=== PATIENT | male | born 1955 | race Caucasian/White ===

== ENCOUNTER → 2019-11-01 08:26 | Outpatient (CLI) | payer OTHER, SELFPAY ==
--- NOTE | ~2019-11-01 | US_ITS ---
EXAMINATION: US abdomen complete DATE: 11/01/2019 09:05 INDICATION: Generalized abdominal pain TECHNIQUE: Multiple grayscale and Doppler ultrasound images of the abdomen were obtained. COMPARISON: None available FINDINGS: Bowel gas obscures visualization of the pancreas. The visualized portions of the pancreas a re unremarkable. Cysts of the liver measure up to 1.5 cm in the right hepatic lobe. The liver is othe rwise normal with normal echogenicity and echotexture. No surface nodularity. Normal hepatopetal flow in the main portal vein. The gallbladder is normal with no abnormal wall thickening, pericholecystic fluid or stones. The normal common bile duct measures 4 mm. There was no sonographic Hayden sign. Th e visualized portions of the aorta and inferior vena cava are normal. The right kidney measures 10.7 x 4.4 x 5.1 cm. The left kidney measures 11.7 x 6.1 x 6.4 cm and conta ins a 1.8 cm cyst. The kidneys demonstrate normal parenchymal echogenicity. There is no hydronephrosi s. The spleen is normal in appearance and measures 9.9 cm. IMPRESSION: 1. No sonographic correlate for the patient's symptoms. Reviewed, dictated and finalized at location A.
--- NOTE | ~2019-11-01 | XR_ITS ---
EXAMINATION: XR chest 2V DATE: 11/01/2019 09:04 INDICATION: Chest pain TECHNIQUE: Frontal and lateral views of the chest are obtained COMPARISON: 12/24/2016 FINDINGS: The lungs are free of acute opacities. There is no pleural effusion or pneumothorax. The ca rdiomediastinal silhouette is normal. There is moderate thoracic spondylosis. IMPRESSION: 1. No acute cardiopulmonary abnormality. Reviewed, dictated and finalized at location A.
== END ==
PROVIDERS: PCP Family Medicine; Visit Provider Family Medicine
DX: R07.9 Chest pain, unspecified (principal); R10.9 Unspecified abdominal pain
CPT/HCPCS: 71046; 76700

== ENCOUNTER 2020-03-26 15:29 | Emergency (ER) | payer OTHER, SELFPAY ==
--- NOTE | ~2020-03-26 | XR_ITS ---
XR chest 2V DATE: 03/26/2020 16:14 INDICATION: Mid upper posterior chest pain, back pain starting this morning. History of COPD. TECHNIQUE: AP and lateral views COMPARISON: 11/01/2019 2 view chest FINDINGS: Normal heart size. No hilar or mediastinal enlargement. No pulmonary infiltrate or consolid ation, pleural effusion or pulmonary vascular congestion or pneumothorax is detected.. Included skele sumeet structures are unremarkable. IMPRESSION: No active cardiopulmonary disease or significant change since 11/01/2019 Reviewed, dictated and finalized at location A. 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
--- NOTE | ~2020-03-26 | CT_ITS ---
EXAMINATION: CTA chest DATE: 03/26/2020 19:25 INDICATION: Chest and back pain TECHNIQUE: Computed tomography (CT) of the chest was performed with 100 cc Omnipaque 350 intravenous contrast. Automated exposure control and iterative reconstruction technique were employed. Exam dose: 853.38 mGy-cm total exam DLP. COMPARISON: 03/26/2020 2 view chest 10/07/2010 CT pulmonary scan FINDINGS: Mild to moderate emphysematous changes are present. Minimal dependent atelectasis at the posterior right lung base. The lungs otherwise are clear of infi ltrate or consolidation. No suspicious pulmonary mass lesion is evident. Normal size and homogeneous enhancement of the thyroid gland. No thoracic aortic aneurysm or dissection. No hilar or mediastinal mass lesion or lymphadenopathy. No CT evidence of pulmonary embolism. There is some attenuation of the right upper lobe pulmonary art [place], possibly secondary to a greater emphysematous change in this lobe. Normal heart size. No pericardial or pleural effusion. Small sliding hiatal hernia. Several probable hepatic cysts. Exophytic 2.1 cm lower pole left renal cyst. Prominent degenerative disc disease at C5-6 and C6-7. There is diffuse idiopathic skeletal hyperostos is of the thoracic spine. Degenerative changes are noted in the lumbar spine. No suspicious osteolytic or osteoblastic lesions are noted. IMPRESSION: Mild to moderate emphysema Reviewed, dictated and finalized at Location A. Reviewed, dictated and finalized at location A. IOLOGY TECHNOLOGIST IMPRESSION: Mild to moderate emphysema
[2020-03-26 15:31] VITALS: BP 123/100; PULSE 69; RESP 20; TEMP 36.6; O2SAT 98
--- NOTE | 2020-03-26 16:00 | ECG_ITS ---
Measurements Intervals [place] Rate: 65 P: 65 NV: 194 QRS: -6 QRSD: 95 T: 48 QT: 384 QTc: 400 Interpretive Statements SINUS RHYTHM INCOMPLETE RIGHT BUNDLE BRANCH BLOCK BASELINE ARTIFACT- I, II, III, AVR, AVL, AVF, V1-V2, V5-V6 BORDERLINE ECG Electronically Signed On 03-26-2020 16:59:18 CHEMIC MANGLER by Jacques Whatley D.O.
--- NOTE | 2020-03-26 16:01 | ED.BACK ---
HPI - Back Pain/Injury General Chief Complaint: Back Pain/Injury Stated Complaint: BACK PAIN Time Seen by Provider: 03/26/20 15:56 Source: RN notes reviewed History of Present Illness HPI Narrative: Patient presents to emergency department from home for upper back pain. Patient states symptoms began approximately 1 week ago. The pain is located between the shoulder blades does not radiate. States is tender to palpation but does not change with touching the location states he took no pain medication today for the symptoms he denies any fevers or chills states he did have a cough earlier in the week but that is now resolved. States that symptoms occurred on the evening after he been using a shot back during the day and thought perhaps that he had aggravated using the shop vac or developed a cough that I thought maybe had irritated it with the dust particles he denies any chest pain abdominal pain nausea vomiting or any other symptoms Related Data Home Medications Medication Instructions Recorded Confirmed albuterol sulfate INHALATION 03/26/20 alprazolam 03/26/20 bupropion HCl mg PO 03/26/20 [id number] INHALATION 03/26/20 [Trelegy Ellipta] losartan 03/26/20 Allergies Allergy/AdvReac Type Severity Reaction Status Date / Time oxycodone Allergy Unknown RASH Verified 03/26/20 15:35 Review of Systems Review of Systems: Narrative: Gen.: Denies fevers or chills Eyes: Denies eye pain or visual change ENT: Denies congestion Respiratory: Denies shortness of breath or cough CV: Denies chest pain or palpitations GI: Denies abdominal pain nausea, emesis or diarrhea Musculoskeletal: See HPI Neuro: Denies numbness, tingling, weakness or focal weakness Skin: Denies rash Except as documented, all other systems reviewed and negative ON LICENSE OF [facility] Past Medical History Medical History (Updated 03/26/20 @ 19:55 by Benson Shen DO) Hypertension Social History Social History (Updated 03/26/20 @ 16:02 by Benson Shen DO) Smoking status: Never smoker Gender identity (if verbalized by the patient): Male Exam Narrative: Exam Narrative: APPEARANCE: No acute distress, nontoxic, resting in bed EYES: EOMI HEENT: Normocephalic, atraumatic, OMM RESPIRATORY: No respiratory distress Clear to auscultation bilaterally with no rhonchi wheezing or rales. CARDIOVASCULAR: Regular rate and rhythm without murmurs rubs or gallops. ABDOMINAL: Soft, nontender, nondistended, no rebound or guarding MUSCULOSKELETAl: Moves all extremities. No clubbing, cyanosis or edema. Back: No midline thoracic or tenderness palpation tender palpation bilateral para 2 muscles T2-5 tender in bilateral rhomboid region NEURO: Awake and alert. Following commands, speech normal, no focal deficits SKIN:: Warm, dry. No rashes lesions or abrasions PSYCHIATRIC: Normal affect/mood, Course Course Emergency Course: Discussed with patient results of workup and diagnosis. Discussed need for follow-up with primary care, proper use of medication, and reasons to return to the emergency department. Patient understands and agrees to current treatment plan Vital Signs Vital signs: Vital Signs Temperature 97.9 F 03/26/20 15:31 Pulse Rate 69 03/26/20 15:31 Respiratory Rate 20 03/26/20 15:31 Blood Pressure 123/100 H 03/26/20 15:31 Pulse Oximetry 98 03/26/20 15:31 Temperature 97.9 F 03/26/20 15:31 Pulse Rate 61 03/26/20 17:40 Respiratory Rate 18 03/26/20 17:40 Blood Pressure 153/100 H 03/26/20 17:40 Pulse Oximetry 99 03/26/20 17:40 MDM - Back Pain/Injury Lab Data Result diagrams: 03/26/20 16:23 03/26/20 16:23 Labs: Lab Results 03/26/20 03/26/20 Range/Units 16:23 16:23 WBC 7.8 (4.5-10.0) K/mm3 RBC 4.58 L (4.6-6.20) M/mm3 Hgb 14.9 (14.0-18.0) g/dL Hct 42.8 (42.0-52.0) % MCV 93.4 (80-100) fl MCH 32.5 (26-34) pg MCHC 34.8 (32-36) g/dl RDW 12.9
[2020-03-26] MEDS: IBUPROFEN 600 MG TABLET PO (16:17)
[2020-03-26 16:44] LABS: Basophils Absolute Auto 0.1 K/mm3 (0.0-0.1); Eosinophils Absolute Auto 0.3 K/mm3 (0-0.3); Eosinophils Percent Auto 4.1 % (0-4.4); Hematocrit 42.8 % (42.0-52.0); Hemoglobin 14.9 g/dL (14.0-18.0); Immature Granulocyte Absolute 0.05 K/mm3 (0.00-0.031); Immature Granulocyte Percent A 0.6 % (0-0.5); Lymphocytes Absolute Auto 1.24 K/mm3 (0.9-3.2); Lymphocytes Percent Auto 15.8 % (18.3-44.2); Mean Corpuscular HGB Conc 34.8 g/dl (32-36); Mean Corpuscular Hemoglobin 32.5 pg (26-34); Mean Corpuscular Volume 93.4 fl (80-100); Mean Platelet Volume 9.3 fl (7.4-10.4); Monocytes Absolute Auto 0.8 K/mm3 (0.1-0.6); Monocytes Percent Auto 10.6 % (2.6-8.5); Neutrophils Absolute Auto 5.3 K/mm3 (1.3-6.7); Neutrophils Percent Auto 67.9 % (45.5-73.1); Platelet Count Result 294 k/mm3 (150-375); Red Blood Count 4.58 M/mm3 (4.6-6.20); Red Cell Distribution Width 12.9 % (11.5-14.5); White Blood Count 7.8 K/mm3 (4.5-10.0)
[2020-03-26 17:07] LABS: Alanine Aminotransferase 32 U/L (4-50); Albumin Level 4.6 g/dL (3.5-5.1); Alkaline Phosphatase 62 U/L (38-126); Anion Gap 7 mmol/L (8-16); Aspartate Amino Transferase 40 U/L (17-59); Bilirubin,Total 0.6 mg/dL (0.2-1.3); Blood Urea Nitrogen 15 mg/dL (9-20); Calcium 9.8 mg/dL (8.4-10.2); Carbon Dioxide 28 mmol/L (22-30); Chloride 99 mmol/L (98-107); Estimated CRCL calculation 102 ml/min; Estimated Glomerular Filt Rate > 60; Glucose 101 mg/dL (75-110); Potassium 4.4 mmol/L (3.4-5.0); Sodium 134 mmol/L (137-145)
[2020-03-26 17:16] LABS: Troponin I < 0.012 ng/mL (0.000-0.034)
[2020-03-26 17:40] VITALS: BP 153/100; PULSE 61; RESP 18; O2SAT 99
[2020-03-26 20:12] VITALS: BP 170/80; PULSE 62; RESP 18; O2SAT 100
== END 2020-03-26 20:12 | disposition home or self-care (01) ==
PROVIDERS: Emergency Provider Emergency Medicine; Family Provider Family Medicine; PCP Family Medicine
DX: M54.6 Pain in thoracic spine (principal); I10 Essential (primary) hypertension; J43.9 Emphysema, unspecified; I45.10 Unspecified right bundle-branch block
CPT/HCPCS: 36415; 71046; 71275; 80053; 84484; 85025; 93005; 99284; A9270; Q9967

== ENCOUNTER 2022-08-13 16:22 | Outpatient (CLI) | payer MEDICARE, OTHER, SELFPAY ==
--- NOTE | 2022-08-14 10:02 | PCRCNOTE ---
Paper documentation exists on this patient due to [employer] downtime on 08/13/22 from 0300 to 1900
--- NOTE | 2022-08-14 12:52 | WPDPFTINT ---
PFT Procedure Performed PFT Procedure Performed Spirometry with Pre/Post Bronchodilator Plethysmography (Lung Vol) Diffusing Cap (DLCO) Flow Vol Loop PFT Interpretation Lung volumes were measured with the body plethysmography method. Lung volumes are unremarkable. Spirometry showed diminished expiratory flow rates and a diminished FEV1 to FVC ratio of 50%, indicative of obstructive airway disease. Following administration of a bronchodilator there was significant increase in the expiratory flow rates. Lung diffusion capacity is within the normal range at 83% predicted. The flow-volume loop is consistent with obstructive airway disease. Impression: Moderate obstructive airway disease with significant response to bronchodilators on this testing. Lung diffusion capacity within the normal range.
--- NOTE | 2022-08-14 12:53 | WPDSIXMINUTE ---
Six Minute Walk Procedure Procedure Performed Pulmonary Stress Test (6 min walk) Six Minute Walk Six Minute Walk: This 6 minute walk test was carried out with the patient breathing ambient air. The pre-walk baseline oxyhemoglobin saturation was 94%. The patient walked over 426 m with no stops during testing. During the walk the oxyhemoglobin saturation remained in the range of 91 % to 94%. Impression: No evidence of oxyhemoglobin desaturation on this testing.
== END 2022-08-13 16:23 | disposition home or self-care (01) ==
PROVIDERS: PCP Family Medicine; Visit Provider Nurse Practitioner
DX: J44.9 Chronic obstructive pulmonary disease, unspecified (principal); R94.2 Abnormal results of pulmonary function studies
CPT/HCPCS: 94060; 94618; 94726; 94729

== ENCOUNTER 2022-08-28 07:53 | Outpatient (CLI) | payer MEDICARE, OTHER, SELFPAY ==
--- NOTE | ~2022-08-28 | CT_ITS ---
CT Scan of the Chest without Contrast: Clinical Indication: Lung cancer screening, personal history of nicotine dependence Technique: Contiguous sections were acquired throughout the chest without intravenous contrast. Dose reduction technique was used on this scan by utilizing automated exposure control and iterative recon struction technique. The dose-length product (DLP) was 173.08 mGy-cm. COMPARISON: 03/26/2020 Findings: There is no evidence of any significant mediastinal, hilar or axillary lymphadenopathy. The mediastin al soft tissues appear normal. There is no evidence of pleural or pericardial effusion. The lungs are clear. No pulmonary nodules or infiltrates are noted. Mild emphysema noted. Images through the upper abdomen reveal no abnormalities. Impression: Lung RADS 1: Negative. 12 month follow-up screening CT advised. Mild emphysema. Reviewed, dictated and finalized at [facility]. Impression: Lung RADS 1: Negative. 12 month follow-up screening CT advised. Mild emphysema.
== END 2022-08-28 07:54 | disposition home or self-care (01) ==
PROVIDERS: PCP Nurse Practitioner Family; Visit Provider Nurse Practitioner
DX: Z12.2 Encounter for screening for malignant neoplasm of respiratory organs (principal); Z87.891 Personal history of nicotine dependence; J43.9 Emphysema, unspecified
CPT/HCPCS: 71271

== ENCOUNTER 2022-10-27 11:23 | Outpatient (CLI) | payer MEDICARE, OTHER, SELFPAY ==
[2022-10-27 12:30] LABS: Hematocrit 43.5 % (42.0-52.0); Hemoglobin 15.2 g/dL (14.0-18.0); Mean Corpuscular HGB Conc 34.9 g/dl (32-36); Mean Corpuscular Volume 94.4 fl (80-100); Mean Platelet Volume 9.4 fl (7.4-10.4); Platelet Count Result 317 k/mm3 (150-375); Red Blood Count 4.61 M/mm3 (4.6-6.20); White Blood Count 7.9 K/mm3 (4.5-10.0)
[2022-10-27 12:48] LABS: Hemoglobin A1C 4.8 % (<5.7)
[2022-10-27 12:57] LABS: Alanine Aminotransferase 25 U/L (6-50); Albumin Level 4.3 g/dL (3.5-5.1); Alkaline Phosphatase 60 U/L (38-126); Anion Gap 4 mmol/L (8-16); Aspartate Amino Transferase 31 U/L (17-59); Bilirubin,Total 0.5 mg/dL (0.2-1.3); Blood Urea Nitrogen 10 mg/dL (9-20); Calcium 9.4 mg/dL (8.4-10.2); Carbon Dioxide 30 mmol/L (22-30); Chloride 96 mmol/L (98-107); Cholesterol 196 mg/dL (0-200); Estimated Glomerular Filt Rate > 60; Glucose 107 mg/dL (65-110); HDL Direct 80 mg/dL; Potassium 4.5 mmol/L (3.4-5.0); Sodium 130 mmol/L (137-145); Triglycerides 88 mg/dL (<150)
[2022-10-27 13:02] LABS: LDL Cholesterol Direct 88 mg/dL
[2022-10-27 13:20] LABS: Prostate Specific Antigen 0.7 ng/mL (< OR = 4.0)
[2022-10-27 13:34] LABS: Hepatitis C Virus Antibody Negative (Negative)
== END 2022-10-27 11:24 | disposition home or self-care (01) ==
PROVIDERS: PCP Nurse Practitioner Family; Referring Provider Nurse Practitioner; Visit Provider Nurse Practitioner Family
DX: Z11.59 Encounter for screening for other viral diseases (principal); E78.5 Hyperlipidemia, unspecified; R73.9 Hyperglycemia, unspecified; I10 Essential (primary) hypertension; Z12.5 Encounter for screening for malignant neoplasm of prostate
CPT/HCPCS: 36415; 80053; 80061; 83036; 84153; 85027; 86803; G0103

== ENCOUNTER 2022-12-04 12:37 | Outpatient (CLI) | payer MEDICARE, OTHER, SELFPAY ==
--- NOTE | ~2022-12-04 | XR_ITS ---
XR shoulder RT min 2V DATE: 12/04/2022 13:04 INDICATION: Chronic right shoulder pain and limited range of motion TECHNIQUE: 5 views of right shoulder COMPARISON: None FINDINGS: No fracture or dislocation, periosteal reaction or bone destruction or abnormal soft tissue calcification of the right shoulder is detected. IMPRESSION: No significant abnormality Reviewed, dictated and finalized at location L. IMPRESSION: No significant abnormality
== END 2022-12-04 12:38 | disposition home or self-care (01) ==
PROVIDERS: PCP Nurse Practitioner Family; Visit Provider Orthopaedic Surgery
DX: M25.511 Pain in right shoulder (principal)
CPT/HCPCS: 73030

== ENCOUNTER 2023-10-20 16:07 | Emergency (ER) | payer MEDICARE, OTHER, SELFPAY ==
--- NOTE | 2023-10-20 16:21 | ED.SKABFB ---
HPI - Skin/Abscess/Foreign Bdy General Chief complaint: Skin/Abscess/Foreign Body Stated complaint: swollen bite lower abdomen Time Seen by Provider: 10/20/23 16:28 Source: patient, RN notes reviewed and old records reviewed Mode of arrival: ambulatory Limitations: no limitations History of Present Illness HPI narrative: 68-year-old male presents to [facility] with complaints of a insect bite to the lower abdomen. Reddened area to the right lower quadrant. Right underneath the waistband of his underwear 4 x 2 cm reddened area that is raised, warm to touch, very small fluctuant center. States that started on Thursday, 2 days ago. Related Data Home Medications Medication Instructions Recorded Confirmed albuterol sulfate 90 mcg/actuation 2 puff inhalation QID 03/26/20 10/20/23 aerosol inhaler alprazolam 0.5 mg tablet 0.5 mg PO DAILY 03/26/20 10/20/23 bupropion HCl 150 mg 24 hr tablet, 150 mg PO DAILY 03/26/20 10/20/23 extended release fluticasone fur. 100 mcg-umeclid 1 inh inhalation DAILY 03/26/20 10/20/23 62.5 mcg-vilant 25 mcg inhalat.powder (Trelegy Ellipta) losartan 100 mg tablet 100 mg PO DAILY 03/26/20 10/20/23 Allergies Allergy/AdvReac Type Severity Reaction Status Date / Time oxycodone Allergy Unknown RASH Verified 10/20/23 16:10 Review of Systems Review of Systems: All systems reviewed & are unremarkable except as noted in HPI and below Constitutional: Constitutional: Reports no additional constitutional complaints Eyes: Eyes: Reports no additional eye complaints ENT: Reports system reviewed and no additional complaints, except as documented Cardiovascular: Cardiovascular: Reports no additional cardiovascular complaints, Denies chest pain and Denies dyspnea Respiratory: Respiratory: Reports no additional respiratory complaints, Denies chest congestion, Denies cough and Denies dyspnea Gastrointestinal: Gastrointestinal: Reports no additional gastrointestinal complaints, Denies abdominal pain, Denies nausea and Denies vomiting Musculoskeletal: Musculoskeletal: Reports no additional musculoskeletal complaints Integumentary/Breasts: Skin/Breast: Reports as per HPI Neurologic: Reports system reviewed and no additional complaints, except as documented Psychiatric: Psychiatric: Reports no additional psychiatric complaints Allergic/Immunologic: Allergic/Immunologic: Reports no additional allergic/immunologic complaints PMFSH Past Medical History Medical History Hypertension Social History Social History Smoking status: Never smoker Gender identity (if verbalized by the patient): Male Comments At the time of my signature, I reviewed and agree with the nursing past medical, surgical, social, and family history. There is no relevant family history pertinent to the patient complaint. Exam Const: General: cooperative, healthy appearing, comfortable, no acute distress, well developed, alert and well nourished Nutritional Appearance: well nourished Orientation/consciousness: patient oriented x3 Limitations: no limitations HENMT: Head: normal to inspection Ears: hearing grossly normal bilaterally and external ears normal Face/Nose/Sinus: Normal external nose present, Normal nares present, Normal nasal mucous membranes and turbinates present, normal facial exam and face symmetric Face and sinus: normal facial exam and face symmetric Eyes: General: appearance normal, both eyes and all related structures Alignment and Position: alignment normal Periorbital: periorbital findings normal Neck: Neck: normal visual inspection, full ROM, no lymphadenopathy and no meningeal signs Chest: Chest palpation & inspection: normal inspection of the chest Resp: Effort & Inspection: normal respiratory effort and able to speak in complete sentences Cardio: Rate: regular rate Skin: General s
[2023-10-20 16:22] VITALS: BP 152/78; PULSE 77; RESP 16; TEMP 36.4; O2SAT 98
== END 2023-10-20 16:50 | disposition home or self-care (01) ==
PROVIDERS: Emergency Provider Nurse Practitioner
DX: L03.311 Cellulitis of abdominal wall (principal); I10 Essential (primary) hypertension
CPT/HCPCS: 87070; 87075; 87076; 87205; 99213; G0463

== ENCOUNTER 2024-07-19 08:17 | Outpatient (CLI) | payer MEDICARE, OTHER, SELFPAY ==
--- OUTSIDE RECORDS SUMMARY | 2024-07-19 08:27 | XMS_ITS | Referral Summary ---
Author Organization [facility] [address] Address [address] [place] [address] Care Team Providers Care Harnessmaker Name Role Phone No, Physician Primary Care Provider [phone] Encounters Date Type Department Care Team Description 05/16/2024 11:00 AM CDT Office Visit [facility] Department of Psychiatry [address] [address] Markos Esparza MD Recurrent major depressive disorder, in partial remission (Primary Dx); Unspecified anxiety disorder from Last 3 Months Allergies Active Allergy Reactions Criticality Noted Date Comments Oxycodone Rash Medium 01/12/2017 Medications losartan (COZAAR) 50 mg tablet Take 50 mg by mouth every morning. 1 8 Active amoxicillin (amoxicillin) 500 mg tablet/capsuleI ndications:Prop hylaxis, Medical TAKE 4 PILL 1 HOUR BEFORE DENTAL APPOINTMENT. 12 tablet/capsul e 2 9 Active fluticasone-ume clidin-vilanter (TRELEGY ELLIPTA) 100-62.5-25 mcg inhaler Trelegy Ellipta 100 mcg-62.5 mcg-25 mcg powder for inhalation INHALE 1 PUFF BY MOUTH DAILY Active ALPRAZolam (XANAX) 0.5 mg tablet Take 1 tablet (0.5 mg total) by mouth 3 (three) times a day 270 tablet 5 08/15/19 25 Active buPROPion SR (WELLBUTRIN SR) 150 mg 12 hr tablet Take 1 tablet (150 mg total) by mouth 2 (two) times a day 180 tablet 5 08/15/19 25 Active traZODone (DESYREL) 50 mg tablet Take 1 tablet (50 mg total) by mouth nightly 30 tablet 5 Active Active Problems Problem Noted Date Diagnosed Date Chronic obstructive lung disease 04/04/2020 Dyslipidemia 04/04/2020 Hyperglycemia 04/04/2020 Hyponatremia 04/04/2020 Osteoarthritis 12/16/2018 HTN (hypertension) 01/25/2018 Anxiety 01/25/2018 Primary osteoarthritis of left knee 12/29/2017 Overview (12/29/2017): Added automatically from request for surgery [id number] Other chest pain 01/12/2017 Assessment & Plan (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 Also today he admits to intermittent chest pain for the last 6 months. Will arrange for the patient to undergo stress exercise echocardiogram stress test to rule out ischemia. His main risk factors for coronary artery disease including long history of smoking as well as male gender. Recurrent major depressive disorder 08/15/2016 Skin tag 08/03/2015 Senile lentigo 08/03/2015 Photoaged skin 08/03/2015 Chronic coronary artery disease 12/15/2013 Chest pain 12/15/2013 Depression 11/17/2011 Abnormal finding on imaging 10/17/2010 Nonspecific colitis 10/17/2010 Immunizations Immunization Administration Dates Next Due Influenza, Quadrivalent, Rec ombinant, Egg Free, Preservative Free, Intramuscular 12/20/2019 Influenza, Quadrivalent, Spl it, Preservative Free, Intramuscular 02/07/2019 Pneumococcal Conjugate PCV 13 01/16/2020 Social History Tobacco Use Types Packs/Day Years Used Date Smoking Tobacco: Former Cigarettes 1 28 1 990 - 2017 Smokeless Tobacco: Former Comments:couple cigarettes h ere and there; occ cigar Alcohol Use Standard Drinks/Week Comments Yes 0 (1 standard drink = 0.6 oz pure alcohol) social - occ 5 or more at a time Sex and Gender Information Value Date Recorded Sex Assigned at Not on file Legal Sex Male 2:03 AM POULTRY PROCESSOR Gender Identity Male 08/14/2020 8:52 AM CDT Sexual Orientation Straight 08/14/2020 8: 52 AM CDT Last Filed Vital Signs Vital Sign Reading Time Taken Comments Blood Pressure 130/78 05/14/2023 9:56 AM CDT Pulse 66 05/14/2023 9:56 AM CDT Temperature 37.3 C (99.1 F) 01/30/2018 11:00 AM POULTRY PROCESSOR Respiratory Rate 16 01/30/2018 11:0 0 AM POULTRY PROCESSOR Oxygen Saturation 96% 01/30/2018 11: 00 AM POULTRY PROCESSOR Inhaled Oxygen Concentration - - Weight 101.9 kg (224 lb 9.6 oz) 05/14/2023 9:56 AM CDT Height 182.9 cm (6') 01/29/2018 3:35 PM POULTRY PROCESSOR Body Mass Index 30.46 01/29/2018 3:35 PM POULTRY PROCESSOR Plan of Treatment Not on file Medical Devices Implanted Type Area Card Cleaner Device Identifier Shelf Expiration Date Model / Serial / Lot [employer] [id number] Attune Cruciate Retain Cementless Knee Left 8 Component Femoral - [id number] Implanted:Qty: 1 on 01/29/2018 by Lc Nunez MD at [facility] [employer] [id number] / / [employer] [id number] Attune 5mm Cruciate Retaining Rotate Platform Knee 8 Insert - [id number] Implanted:Qty: 1 on 01/29/2018 by Lc Nunez MD at [facility] Left: Knee [employer] [id number] / / [employer] [id number] Attune Cementless Rotate Platform Knee 9 Baseplate Tibial - [id number] Implanted:Qty: 1 on 01/29/2018 by Lc Nunez MD at [facility] Left: Knee [employer] [id number] / / Insurance [employer] [facility] CHOICE PLUS [facility] CHOICE PLUS MEDICARE [address] [facility] [place] [id number] Advance Directives For more information, please contact: [phone] * Full Code (Latest Code Status on File) Date Activated Date Inactivated Comments 01/29/2018 3:43 PM 01/30/2018 7:15 PM Care Teams Harnessmaker Relationship Specialty Start Date End Date No, Physician PCP - General 01/31/22
--- OUTSIDE RECORDS SUMMARY | 2024-07-19 08:27 | XMS_ITS | Clinical Summary ---
Author Organization [facility] [address] Address [address] [place] [address] Care Team Providers Care Claims Adjuster Name Role Phone No, Physician Primary Care Provider Allergies Active Allergy Reactions Criticality Noted Date [...] (12/29/2017): Added automatically from request for surgery [id number] Other chest pain 01/12/2017 Assessment & Plan (01/12/2017 12:28 PM ADHESION TESTER): Recurrent chest pain and at this time [...] finding on imaging 10/17/2010 Nonspecific colitis 10/17/2010 Encounters Date Type Department Care Team Description 05/16/2024 11:00 AM CDT Office Visit [facility] Department of Psychiatry [address] [place] [id number] Markos Esparza MD Recurrent major depressive disorder, in partial remission (Primary Dx); Unspecified anxiety disorder from Last 3 Months Immunizations Immunization Administration Dates Next Due Influenza, Quadrivalent, Rec ombinant, Egg Free, Preservative Free, Intramuscular 12/20/2019 Influenza, Quadrivalent, Spl it, Preservative Free, Intramuscular 02/07/2019 Pneumococcal Conjugate PCV 13 01/16/2020 Surgical History Surgery Date Site/Laterality Comments KNEE SURGERY 03/02/2002 - 03/01/2003 Left arthroscopic HERNIA REPAIR 03/02/2001 - 03/01/2002 COLONOSCOPY 03/02/2014 - 03/01/2015 JOINT REPLACEMENT Medical History Medical History Date Comments Hypertension Anxiety onset following son's suicide 10 years ago- f/by [facility] psychiatry (Dr Fredi Walls) Major depression, recurrent precious ged by [facility] psychiatry (Dr Fredi Walls) Atypical chest pain evaluated by Dr Cerna 2013 Asthma Arthritis Family History Medical History Relation Name Comments Stroke Father in his 70s Breast cancer Mother Relation Name Status Comments Father (Age 75) Mother (Age 70) Social History Tobacco Use Types Packs/Day Years Used Date Smoking Tobacco: Former Cigarettes 2017 Smokeless Tobacco: Former Comments:couple cigarettes h ere and there; occ cigar Alcohol Use Standard Drinks/Week Comments Yes 0 (1 standard drink = 0.6 oz pure alcohol) social - occ 5 or more at a time Sex and Gender Information Value Date Recorded Sex Assigned at Not on file Legal Sex Male 2:03 AM ADHESION TESTER Gender Identity Male 08/14/2020 8:52 AM CDT Sexual Orientation Straight 08/14/2020 8: 52 AM CDT Obstetrics History Last Filed Vital Signs Vital Sign Reading Time Taken Comments Blood Pressure 130/78 05/14/2023 9:56 AM CDT Pulse 66 05/14/2023 9:56 AM CDT Temperature 37.3 C (99.1 F) 01/30/2018 11:00 AM ADHESION TESTER Respiratory Rate 16 01/30/2018 11:0 0 AM ADHESION TESTER Oxygen Saturation 96% 01/30/2018 11: 00 AM ADHESION TESTER Inhaled Oxygen Concentration - - Weight 101.9 kg (224 lb 9.6 oz) 05/14/2023 9:56 AM CDT Height 182.9 cm (6') 01/29/2018 3:35 PM ADHESION TESTER Body Mass Index 30.46 01/29/2018 3:35 PM ADHESION TESTER Plan of Treatment Health Maintenance Due Date Last Done Comments Colon Cancer Screening-Colonoscopy 1955 Depression Screening 1956 Fall Risk Assessment 1956 Hepatitis C Screening 1956 Prostate Cancer Screening-PSA 1956 DTaP/Tdap/Td Vaccine (1 - Tdap) 05/28/1967 Hepatitis B Screening 1974 Lung Cancer Screening 2006 Zoster Vaccine (1 of 2) 2006 Abdominal Aortic Aneurysm (AAA) Screen 2021 Well Visit 65+ 2021 Influenza Vaccine (Season Ended) 2024 12/20/19, 02/07/2019 Pneumococcal vaccine 65+ Completed 02/11/2022, 12/31 Medical Devices Implanted Type Area Technical Research Scientist Device Identifier Shelf Expiration Date Model / Serial / Lot [employer] [id number] Attune Cruciate Retain Cementless Knee Left 8 Component Femoral - [id number] Implanted:Qty: 1 on 01/29/2018 by Lc Nunez MD at [facility] [employer] [id number] / / [employer] [id number] Attune 5mm Cruciate Retaining Rotate Platform Knee 8 Insert - [id number] Implanted:Qty: 1 on 01/29/2018 by Lc Nunez MD at [facility] Left: Knee [employer] [id number] / / [employer] [id number] Attune Cementless Rotate Platform Knee 9 Baseplate Tibial - [id number] Implanted:Qty: 1 on 01/29/2018 by Lc Nunez MD at [facility] Left: Knee [employer] [id number] / / Insurance [facility] [id number] [place] [address] [facility] [place] [address] MEDICARE [address]ILRO[address] [facility] [place] [address] Advance Directives For more information, please contact: [phone] * Full Code (Latest Code Status on File) Date Activated Date Inactivated Comments 01/29/2018 3:43 PM 01/30/2018 7:15 PM Care Teams Claims Adjuster Relationship Specialty Start Date End Date No, Physician PCP - General 01/31/22
--- OUTSIDE RECORDS SUMMARY | 2024-07-19 08:27 | XMS_ITS | Data Portability ---
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 Plan of Treatment Reminders Order Date Submit Date Provider Last Modified By Organization Details Last Modified Time Details Appointments None recorded. Lab lipid panel, serum 2024 025 [facility], [address] [place], [address], 14:09:45 CMP, serum or plasma 2024 025 [facility], [address] [place], [address], 5 14:09:45 HbA1c (hemoglobi n A1c), blood 2024 025 [facility], [address] [place], [address], 5 14:09:45 PSA, serum or plasma 2024 025 [facility], [address] [place], [address], 5 14:09:45 CBC w/ auto diff 2024 025 [facility], [address] [place], [address], 5 14:09:44 vitamin D, 25-hydroxy , total, serum [address] (Lab), [address] [place], [address], 4 11:40:05 PSA, serum or plasma [address] (Lab), [address] [place], [address], 4 11:37:49 BMP, serum or plasma [address] (Lab), [address] [place], [address], 4 11:38:13 hepatic function panel, serum [address] (Lab), [address] [place], [address], 4 11:38:32 lipid panel, serum [address] (Lab), [address] [place], [address], 4 11:38:51 CBC [address] (Lab), [address] [place], [address], 4 11:39:11 TSH, serum or plasma [address] (Lab), [address] [place], [address], 4 11:39:29 glycohemog lobin, total, blood [address] (Lab), [address] [place], [address], 4 11:39:48 rast class, qualitativ e, serum 2022 023 [email or web address] 5 Not available 3 10:19:39 ige, total, serum 2022 023 5 Not available 3 10:19:39 igg subclasses 1+2+3+4, serum 2022 023 [email or web address] 5 Not available 3 10:19:39 BNP (B-type natriureti c peptide), blood 2022 023 [email or web address] 5 Not available 3 10:19:40 alpha-1-an titrypsin (aat), QN, serum 2022 023 [email or web address] 5 Not available 3 10:19:40 alpha-1-an titrypsin (aat) phenotype, serum 2022 023 [email or web address] 5 Not available 3 10:19:40 eosinophil s, auto, blood (OBS) 2022 023 [email or web address] 5 Not available 3 10:19:40 rast class, qualitativ e, serum 2022 023 [email or web address] Not available 3 17:12:27 ige, total, serum 2022 023 [email or web address] Not available 3 17:12:27 igg subclasses 1+2+3+4, serum 2022 023 [email or web address] Not available 3 17:12:27 BNP (B-type natriureti c peptide), blood 2022 023 [email or web address] Not available 3 17:12:28 alpha-1-an titrypsin (aat), QN, serum 2022 023 [email or web address] Not available 3 17:12:28 alpha-1-an titrypsin (aat) phenotype, serum 2022 023 [email or web address] Not available 3 17:12:28 eosinophil s, auto, blood (OBS) 2022 023 [email or web address] Not available 3 17:12:28 Referral gastroente rologist referral - Please call patient to schedule an appointmen t. Thank you. 2024 025 YANY Cha MD, [address] [facility], [facility], [place], [address], 5 09:24:23 Procedures None recorded. Surgeries None recorded. Imaging LDCT, chest, for lung cancer screening - 1 PPD from [address] ed again at age 61 no auth required [address] [facility], [facility] [address], [place], [address], 3 09:42:21 LDCT, chest, for lung cancer screening - 1 PPD from [address] ed again at age 61 [address] [facility], [facility] [address], [place], [address], 3 17:13:10 Medication Orders Trelegy Ellipta 100 mcg-62.5 mcg-25 mcg powder for inhalation 2024 025 [id number], [address] [place], [place], [id number], 5 14:26:20 Ventolin HFA 90 mcg/actuat ion aerosol inhaler 2024 025 [facility], [address] [place], [place], [id number], 5 14:26:19 losartan 100 mg tablet 2024 025 [facility]06, [address] [place], [place], [id number], 5 14:26:21 nystatin 100,000 unit/mL oral suspension 2022 023 [email or web address], [address] [place], [place], [id number], 5 14:07:27 nystatin 100,000 unit/mL oral suspension 2022 023 [facility]58021, [address] [place], [place], [id number], 5 14:07:27 nystatin 100,000 unit/mL oral suspension 2022 023 [facility] #20511, [address] [place], [place], [id number], 5 14:07:27 Patient TargetsNo targets recorded. Patient Instructions Encounter Date Encounter Id Patient Instructions Last Modified By Organization Details Last Modified Time 05/14/2022 [id number] complete PFT w/ post bronchodilator spirometry* Not available 08/19/2022 12:06:12 six minute walk test* - titrate for home o2 Not available 08/19/2022 12:04:21 04/30/2023 [id number] dementia rating scale-2* YANY Not available 04/30/2023 12:26:21 dementia rating scale-2* Not available 04/30/2023 11:23:45 alcohol misuse* Not available 04/30/2023 11:23:45 depression screening* Not available 04/30/2023 11:23:45 multi-dimensiona l health assessment questionnaire* YANY Not available 04/30/2023 12:29:18 care plan* YANY Not available 12:27:20 advance care planning: care instructions Not available 04/30/2023 10:56:26 advance directiv es: care instructions Not available 04/30/2023 10:56:26 [place] Advance Directives Not available 04/30/2023 10:56:26 care plan* YANY Not available 12:28:02 Personalized Hea lth Plan and Screening Recommendations Advance Directives - Do you have one? Yes Advance Directives - Do we have your advance directive on file in your health record? No, please bring in a copy at your earliest convenience Primary Prevention/Interven tion (prevents or decreases the chance of common diseases from occurring) Smoking Risk: Non Smoker Alcohol Misuse Screening: Negative Weight: Appropriate Overwei ght continue your current weight loss efforts try to lose 5% of your body weight try to lose 10% of your body weight Physical activity: Need more exercise/physical activity minimum of 10-20 minutes of activity that causes mild breathlessness/day minimum of 20-30 minutes activity that causes mild breathlessness/day Nutrition: Good Average Fall Risk (screened today): Low Vaccines Pneumococcal: Ordered Recommended today Recommended today, but you have declined No further needed Influenza: Your next one in the fall of this year Chronic Disease Risks Stroke: Low Risk I have no recommendations Heart Attack: Low risk I have no recommendations Clogging of the Arteries: Low risk I have no recommendations Diabetes: Low Risk I have no recommendations Secondary Prevention/Interven tion (detects treatable diseases before they may cause symptoms, disability, or ) Prostate Cancer Screening: Colon Cancer Screening: Colonoscopy Date Screening Last Performed: Eye Disease Screening: No Eye exam necessary Dementia Risk: Low I have no recommendations Depression Screening: Negative [email or web address] Not available 04/30/2023 11:12:52 05/11/2024 [id number] dementia rating scale-2* [email or web address] Not available 05/24/2024 21:35:16 multi-dimensiona l health assessment questionnaire* [email or web address] Not available 05/24/2024 21:35:16 care plan* [email or web address] Not available 05/01 21:35:16 advance directiv es: care instructions [email or web address] Not available 05/24/2024 21:35:16 advance care planning: care instructions [email or web address] Not available 05/24/2024 21:35:16 [place] Advance Directives [email or web address] Not available 05/24/2024 21:35:16 Reason for Referral Salmon Troll Fisher Referral for Screening for malignant neoplasm of colon Please call patient to schedule an appointment. Thank you. Referring Physician: Nadya Gonzalez, Family Medicine, Encounter Date: 05/11/2024 Results Created Date Observation Date Name Description Value Unit Range Abnormal Flag Note LastModifiedBy Organization Detail LastModifiedTime 08/15/19 23 08/13/2022 six minut e walk test* No observ ation record ed. [email or web address] [facility] (Cardiology & Emg) [facility] [address], [place], [address], 08/20/2022 12:32:34 08/15/19 23 08/13/2022 compl ete PFT w/ post [facility] hodil ator franca metry * No observ ation record ed. [email or web address] [facility] (Cardiology & Emg) [address] [facility] [address], [place], [address], 08/19/2022 12:06:34 08/29/19 23 08/28/2022 LDCT, chest , for lung cance r scree ajith No observ ation record ed. [email or web address] [facility] Imaging [address], [place], [address], 09/09/2022 15:58:51 11/13/19 23 08/13/2022 compl ete PFT w/ post [facility] hodil ator franca metry * No observ ation record ed. BARCODE [facility] (Cardiology & Emg) [address] [facility] [address], [place], [address], 11/12/2022 18:15:48 12/05/19 23 12/04/2022 XR, shoul angel No observ ation record ed. [email or web address] [facility] [address] [facility] [address], [place], [address], 12/05/2022 09:00:49 Result Notes None recorded. Problems Name Problem SNOMED Code Status Onset Date Resolution Date Notes Provider Name and Address Organization Details Recorded Time Chronic obstructive pulmonary disease 59064267 Active 2020 Not Available [facility] 3 06:00:10 Mixed anxiety and depressive disorder 395743601 Active 2020 Not Available [facility] 3 06:00:10 Dyslipidemia 480240244 Active 2020 Not Available [facility] 3 06:00:10 Osteoarthriti s 532957866 Active Not Available [facility] 3 06:00:10 Hyperglycemia 68124663 Active 2020 Not Available [facility] 3 06:00:10 Hyponatremia 28199804 Active 2020 Not Available [facility] 3 06:00:10 Dyspnea on exertion 81212357 Active 2022 ESTEFANI LewisCATHI [address] [employer], [address], [place], [address] , [employer] 3 10:52:29 Candidiasis of mouth 25186848 Active 2022 ESTEFANI [employer] [address] [employer], [address] [place] [address], [address] , [facility] 3 11:14:50 Asthma 572393878 Active 2022 CAROLINA Lewis [address] [employer] [employer], [address], [place], [address] , [facility] 3 16:58:52 Marijuana user 396320798 Active 2022 CAROLINA Lewis [address] [employer] [employer], [address], [place], [address] , [facility] 3 14:44:30 Paronychia of finger 171090162 Active 2022 Irma Sharpe MD [address] [employer] [employer], [address], [place], [address] , [facility] 3 14:26:02 Constipation 43508082 Active 2022 Irma Sharpe MD [address] [facility], [address], [place], [address] , [facility] [employer] [facility] 3 13:20:35 Essential hypertension 85678401 Active 2024 MARTA Arriaga [address] [facility], [address], [place], [address] , [facility] [employer] [facility] [employer] [facility] 5 14:26:47 Problem Notes None recorded. Procedures Surgical History Date Name Laterality Status Provider Name and Address Organization Details Recorded Time Medicare Wellness CPT Code, subsequent completed MARTA Arriaga [address], [facility] [address], [place], [address], [facility] [employer] [facility] [employer] [facility] 05/24/2024 21:32:07 4 Medicare Wellness CPT Code, subsequent completed Janessa Dee RN [facility] [employer] [facility] 04/30/2023 10:27:48 4 Medicare Wellness CPT Code, Initial completed Portia Villaseñor RN [facility] [employer] [facility] 04/30/2023 11:02:14 Knee Replacement completed Julia David MA [facility] [employer] [facility] 05/11/2024 14:09:07 Hernia Repair completed Julia David MA [facility] [employer] [facility] 05/11/2024 14:09:14 Imaging Results Imaging Date Name Status LastModified by Organization Details LastModified Time 08/13/2022 six minute walk test* completed [address] (Cardiology & Emg) [address] [facility] [address] [place] [address], [address], 08/20/2022 12:32:34 08/13/2022 complete PFT w/ post bronchodilator spirometry* completed [address] (Cardiology & Emg) [address] [facility] [address], [address], 08/19/2022 12:06:34 08/28/2022 LDCT, chest, for lung cancer screening completed [email or web address] [facility] [address], [place], [address], 09/09/2022 15:58:51 08/13/2022 complete PFT w/ post bronchodilator spirometry* completed [facility] (Cardiology & Emg) [address] [facility] [address], [place], [address], 11/12/2022 18:15:48 12/04/2022 XR, shoulder completed [email or web address] [facility] [address] [facility] [address], [place], [address], 12/05/2022 09:00:49 Procedure Notes None recorded. Medical Equipment None Reported. Allergies Allergen ID Allergen Name Allergen Category Reaction Reaction Severity Criticality Documentation Date Start Date Code Code System Note Provider Name and Address Organization Details Recorded Time 88324 Oxycontin medicatio n hives severe Not available 04/30/2022 39496 6 RxNorm Not Available [facility] 06:05:10 Medications Name Sig Start Date Stop Date Status Note LastModified by Organization Details LastModified Time cyclobenzap rine 10 mg tablet 05/12 completed Not Available Not Available Not Available amoxicillin 500 mg capsule TAKE 4 CAPSULES BY MOUTH 1 HOUR PRIOR TO APPT 05/11 completed Not Available Not Available Not Available bupropion HCl SR 150 mg tablet,12 hr sustained-r elease TAKE 1 TABLET BY MOUTH TWICE A DAY 05/11 completed Not Available Not Available Not Available nystatin 100,000 unit/mL oral suspension SHAKE LIQUID AND TAKE 5 ML BY MOUTH FOUR TIMES DAILY FOR 10 DAYS DIRECTED 05/11 completed Not Available Not Available Not Available prednisone 10 mg tablet 05/12 completed Not Available Not Available Not Available trazodone 50 mg tablet TAKE 1 TABLET BY MOUTH EVERY DAY AT NIGHT active Not Available Not Available No t Available azithromyci n 250 mg tablet 05/12 completed Not Available Not Available Not Available meloxicam 15 mg tablet TAKE 1 TABLET BY MOUTH EVERY DAY 05/11 completed Not Available Not Available Not Available acetaminoph en 300 mg-codeine 30 mg tablet TAKE 1 TABLET BY MOUTH EVERY 6 TO 8 HOURS NEEDED FOR PAIN WITH FOOD 05/11 completed Not Available Not Available Not Available amoxicillin 500 mg tablet TAKE 4 TABLETS BY MOUTH 1 HOUR PRIOR TO APPT 05/11 completed Not Available Not Available Not Available prednisone 10 mg tablets in a dose pack 05/12 completed Not Available Not Available Not Available cefadroxil 500 mg capsule TAKE 1 CAPSULE BY MOUTH TWICE A DAY 05/11 completed Not Available Not Available Not Available alprazolam 0.5 mg tablet TAKE 1 TABLET BY MOUTH 3 TIMES A DAY. active Not Available Not Available No t Available lorazepam 0.5 mg tablet 04/04 completed Not Available Not Available Not Available cephalexin 500 mg capsule TAKE 1 CAP BY MOUTH EVERY 8 HOURS FOR 7 DAYS 05/11 completed Not Available Not Available Not Available clotrimazol e-betametha sone 1 %-0.05 % topical cream 05/12 completed Not Available Not Available Not Available lisinopril 10 mg tablet 05/12 completed Not Available Not Available Not Available omeprazole 20 mg capsule,del ayed release TAKE 1 CAPSULE BY MOUTH EVERY DAY 05/12 completed Not Available Not Available Not Available aspirin 81 mg chewable tablet active Not Available Not Available Not Available diclofenac sodium 75 mg tablet,braxton yed release TAKE 1 TABLET BY MOUTH TWICE DAILY 05/11 completed Not Available Not Available Not Available ibuprofen 600 mg tablet 05/12 completed Not Available Not Available Not Available polyethylen e glycol 3350 17 gram/dose oral powder DISSOLVE 1 CAPFUL IN LIQUID DAILY AND DRINK NEEDED CONSTIPAT ION 05/11 completed Not Available Not Available Not Available losartan 100 mg tablet TAKE 1/2 TABLET BY MOUTH EVERY DAY 2024 active Not Available Not Available Not Avai lable metronidazo le 0.75 % topical gel APPLY TOPICALLY 2 (TWO) TIMES A DAY TO FACE 05/11 completed Not Available Not Available Not Available amoxicillin 875 mg-potassiu m clavulanate 125 mg tablet TAKE 1 TABLET BY MOUTH TWICE DAILY FOR 10 DAYS 05/11 completed Not Available Not Available Not Available Ventolin HFA 90 mcg/actuati on aerosol inhaler INHALE 1 TO 2 PUFFS BY MOUTH FOUR TIMES DAILY NEEDED FOR BREATHING 2024 active Not Available Not Available Not Avai lable bupropion HCl XL 300 mg 24 hr tablet, extended release 04/04 completed Not Available Not Available Not Available bupropion HCl XL 150 mg 24 hr tablet, extended release TAKE 1 TABLET BY MOUTH TWICE A DAY active Not Available Not Available No t Available Cialis 10 mg tablet 05/12 completed Not Available Not Available Not Available Prevnar 13 (PF) 0.5 mL intramuscul ar syringe [facility] 05/12 completed Not Available Not Available Not Available Chantix Continuing Month Box 1 mg tablet 04/04 completed Not Available Not Available Not Available Chantix Starting Month Box 0.5 mg (11)-1 mg (42) tablets in dose pack 04/04 completed Not Available Not Available Not Available Trelegy Ellipta 100 mcg-62.5 mcg-25 mcg powder for inhalation INHALE 1 PUFF BY MOUTH DAILY 2024 active Not Available Not Available Not Avai lable Flublok Quad (PF) 180 mcg (45 mcg x 4)/0.5 mL IM syringe [facility] 05/12 completed Not Available Not Available Not Available Vitals Date Recorded Body height Body mass index (BMI) Body weight Body temperature Heart rate Oxygen saturation Oxygen saturation in Arterial blood by Pulse oximetry Systolic blood pressure Diastolic blood pressure Provider Name and Address Organization Details Last Updated DateTime 3 182.88 cm 31.5 kg/m2 314888. 43 g 97.3 [degF] 83 /min 95 % 95 % 130 mm[Hg] 52 mm[Hg] [facility] 3 10:25:18 Date Recorded Body height Body mass index (BMI) Body weight Body temperature Oxygen saturation Oxygen saturation in Arterial blood by Pulse oximetry Systolic blood pressure Diastolic blood pressure Provider Name and Address Organization Details Last Updated DateTime 3 182.88 cm 30.2 kg/m2 404902. 1 g 98 [degF] 95 % 95 % 116 mm[Hg] 56 mm[Hg] [facility] 3 12:52:10 Date Recorded Body height Body mass index (BMI) Body weight Heart rate Oxygen saturation Oxygen saturation in Arterial blood by Pulse oximetry Systolic blood pressure Diastolic blood pressure Provider Name and Address Organization Details Last Updated DateTime 3 182.88 cm 28.8 kg/m2 96183.5 8 g 75 /min 97 % 97 % 142 mm[Hg] 66 mm[Hg] Helen Villa [facility] [employer] [facility] 3 12:21:28 Date Recorded Body height Body mass index (BMI) Body weight Body temperature Heart rate Oxygen saturation Oxygen saturation in Arterial blood by Pulse oximetry Systolic blood pressure Diastolic blood pressure Provider Name and Address Organization Details Last Updated DateTime 4 182.88 cm 29.8 kg/m2 65282.3 2 g 97.3 [degF] 65 /min 97 % 97 % 152 mm[Hg] 88 mm[Hg] Janessa Dee RN [facility] [employer] [facility] 4 10:31:06 Date Recorded Body height Body mass index (BMI) Body weight Body temperature Heart rate Oxygen saturation Oxygen saturation in Arterial blood by Pulse oximetry Systolic blood pressure Diastolic blood pressure Provider Name and Address Organization Details Last Updated DateTime 5 182.88 cm 31.6 kg/m2 330406. 02 g 98.3 [degF] 80 /min 96 % 96 % 124 mm[Hg] 66 mm[Hg] Julia David MA [facility] [employer] [facility] 5 14:06:03 Social History Question Answer Notes LastModified by Organizat ion Details LastModified Time Tobacco Smoking Status Former Smoker off and on all his life Janessa Dee RN [facility], [facility] [employer] [facility] 04/30/2023 10:31:47 What Is Your Level Of Caffeine Consumption? Moderate Everyday Coffee And Red Bull [email or web address] Information not available 05/14/2022 In The 14 Days Before Symptom Onset, Have You Had Close Contact With A Laboratory-confir med COVID-19 While That Case Was Ill? No Information not available 10/29/2022 In The 14 Days Before Symptom Onset, Have You Had Close Contact With A Person Who Is Under Investigation For COVID-19 While That Person Was Ill? No Information not available 10/29/2022 What Type Of Diet Are You Following? [id number] [id number] Information not available 04/30/2022 Which Illicit Or Recreational Drugs Have You Used? Marijuana Information not available 10/29/2022 Have There Been Any Changes To Your Family Or Social Situation? No Information no t available 10/29/2022 Do You Use Insect Repellent Routinely? No Information not available 05/11/2024 What Was The Date Of Your Most Recent Tobacco Screening? 05/11/2024 Information not available 05/11/2024 How Many Children Do You Have? 1 Information not available 05/11/2024 Do You Have Any Pets? Yes Information not available 10/29/2022 What Is Your Relationship Status? Information not available 05/11/2024 Do You Use Your Seat Belt Or Car Seat Routinely? Yes Information not available 05/11/2024 Do You Have Smoke And Carbon Monoxide Detectors In Your Home? Yes Information not available 05/11/2024 At What Age Did You Start Smoking Tobacco? 24 Information not available 10/29/2022 Are You Passively Exposed To Smoke? No Information no t available 05/11/2024 Are There Any Smokers In Your House? Yes Information not available 05/11/2024 Do You Participate In Social Media? No Information not available 05/11/2024 Do You Use Sunscreen Routinely? No Information not available 05/11/2024 Has Tobacco Cessation Counseling Been Provided? No Information not available 10/29/2022 Have You Recently Traveled Abroad? No Information not available 10/29/2022 Have You Used IV Drugs? No Information not available 10/29/2022 Are You Currently In School? No Information not available 05/11/2024 Do You Have Any Dietary Restrictions? No Information not available 10/29/2022 Sex: Unknown Functional Status Question Answer Note LastModified by Organizat ion Details LastModified Time Do you use any illicit or recreational drugs? Yes Information not available 10/29/2022 Do you or have you ever used any other forms of tobacco or nicotine? No Information not available 10/29/2022 What is your level of alcohol consumption? Moderate 2-3 xs per week [email or web address] Information not available 05/14/2022 Are you currently employed? No Retired Information not available 05/11/2024 What is your exercise level? None [id number] Information not available 04/30/2022 Mental Status Question Answer Note LastModified by Organization D etails LastModified Time Do you feel stressed (tense, restless, nervous, or anxious, or unable to sleep at night)? [id number] Information not available 05/11/2024 Family History Relationship Description Onset Age of this Age Resolved Age Notes LastModified by Organization Details LastModified Time Mother Family history of malignant neoplasm [id number] Not available 04/30/2022 05:55:05 Medical History No medical history recorded. Immunizations Vaccine Type Date Status Note Provider Nam e and Address Organization Details Recorded Time COVID-19 PS Non-US Vaccine (EpiVacCorona) 1 completed Not Available [facility] 04/30/2022 06:04:53 pneumococcal polysaccharide PPV23 2 completed Not Available [facility] 04/30/2022 06:04:53 Past Encounters Encounter ID Performer Location Encounter Start Date Encounter Closed Date Diagnosis/Indication Diagnosis SNOMED-CT Code Diagnosis ICD10 Code Diagnosis Note [id number] Irma Sharpe MD [facility] [address] [place] [address] 12/20/2020 00:00:00 12/20/2020 12:16:53 [id number] ESTEFANI De [facility] Primary Care [facility] [address] [facility] [address] [place] [address] 10/02/2021 00:00:00 10/02/2021 14:01:49 [id number] Irma Sharpe MD [facility]le [address] [place] [address] 02/11/2022 00:00:00 02/11/2022 14:22:42 [id number] ESTEFANI Lewis-[facility] Pulmonolo gy [place] [address] [place] [address] 05/14/2022 10:18:58 05/15/2022 08:49:09 Chronic obstructive pulmonary disease 51753501 J44.9 CAT 9Check PFT and six minute walkRemain on Trelegy Ellipta 100 for nowInstruc anahy on technique and rinse and spitAlbute rol PRN - discussed indication s for use Dyspnea on exertion 6084 5006 R06.09 Mutifactor alCheck labsHe must quit smoking Nicotine dependence 5629 4008 Z87.891 Check LDCT, he qualifies based on pack year history and current useSmoking cessation counseling and techniques reviewed at length. Literature reviewed. Avoid triggers, support groups.Dis traction techniques Greater than 3 but less than 10 minutes spent discussing cessation. Declines NRT. Discussed Rx options if needed in the future. Candidiasis of mouth 797 47523 B37.0 Start nystatinRe -instructe d on rinse and spit after use [id number] Nieves Douglas, [facility] Pulmonolo [facility] [address] [place] [address] 08/20/2022 12:24:14 08/20/2022 17:35:27 Chronic obstructive pulmonary disease 92295096 J44.9 CAT 7PFT completed 07/2022 with obstructio n - ratio 50%Staff requested graphs todayRemai n on Trelegy Ellipta 100 for nowInstruc anahy on technique and rinse and spit after useAlbuter ol PRN - discussed indication s for useDiscuss ed reportable signs and symptoms Dyspnea on exertion 6084 5006 R06.09 Mutifactor alCheck labsHe must quit smoking Candidiasis of mouth 797 77183 B37.0 Start nystatinRe -instructe d on rinse and spit after use Nicotine dependence 5629 4008 Z87.891 Check LDCT, he qualifies based on pack year history and current useSmoking cessation counseling and techniques reviewed at length. Literature reviewed.A void triggers, support groups.Dis traction techniques Greater than 3 but less than 10 minutes spent discussing cessation. Declines NRT.Discus sed Rx options if needed in the future. Asthma [id number] J45.90 9 PFT dictation reports good BD responseAw aiting graphs and FEV1 value to see if methacholi ne is contraindi cated [id number] Nieves Douglas, [employer] Pulmonolo gy Maico Kaplan [address] [place] [address] 10/29/2022 12:13:07 10/29/2022 13:06:00 Chronic obstructive pulmonary disease 81752054 J44.9 CAT 7PFT completed 07/2022 with obstructio n - ratio 50%Staff requested graphs again today - I do not have numeric valuesRema in on Trelegy Ellipta 100 for nowInstruc anahy on technique and rinse and spit after useAlbuter ol PRN - discussed indication s for useEmphyse matous changes to CT chestDiscu ssed reportable signs and symptoms Asthma 560553394 J45.90 9 ACT 19PFT dictation reports good BD responseAw aiting graphs and FEV1 value to see if methacholi ne is contraindi cated Dyspnea on exertion 6084 5006 R06.09 Mutifactor alCMacton Corporation labs - reprinted for patient todayHe must quit smoking Candidiasis of mouth 797 88865 B37.0 Start nystatinRe -instructe d on rinse and spit after use Nicotine dependence 5629 4008 Z87.891 Smoking cessation counseling and techniques reviewed at length. Literature reviewed.A void triggers, support groups.Dis traction techniques Greater than 3 but less than 10 minutes spent discussing cessation. Declines NRT.Discus sed Rx options if needed in the future.CT chest 07/2022 with no nodule, mass, or enlarged lymph nodesRepea t in one year 08/2023 Marijuana user 560301682 F12.90 Advised alternate methods of delivery [id number] Irma Sharpe MD S[facility] [address] [facility] [address] [place] [address] 04/30/2023 10:24:07 04/30/2023 11:06:30 Adult health examination 053800189 Z00.00 Encouraged fresh fruits and veggiesInc rease daily water intake-dri nks mostly water/Tejinder ncourage 30 mins of daily exercise-e xercise every other dayColonos copy- he is up to date, currenlty on 10 year planDEXA-n o hx of fxLDCT-ex smoker-alr annabelle had flu shot in December Screening for disorder 091324389 Z13.9 [id number] MARTA Arriaga [facility] Duncan edmond [address] [facility] [address] [place] [address] 05/11/2024 13:58:46 05/11/2024 14:31:28 Essential hypertension 33783142 I10 124/66Will check labs and refill meds as listed below. Chronic ob structive pulmonary disease 01283719 J44.9 Will refill meds as listed below. Adult heal th examination 580254281 Z00.00 Discussed medication compliance and routine follow up.Discuss ed healthy diet and routine exercise.Alex jenningswed vaccine records and made recommenda tions as needed.Enc ouraged annual eye and dental exams, as well as twice yearly dental cleanings. Will check screening labs as listed below. Dyslipidemia 244552450 E 78.5 Will check labs as listed below. Hyperglycemia 96272085 R 73.9 Will check labs as listed below. Screening for malignant neoplasm of prostate 902090783 Z12.5 Will check labs as listed below. Screening for malignant neoplasm of colon 435115118 Z12.11 Screening for disorder 845794836 Z13.9 Body mass index 30+ - obesity 292197880 Z68.31 Weight: 233 poundsBMI: 31.6Discus sed healthy diet and routine exercise. Health Concerns Section Related Observation LastModified by Organization Detai ls LastModified Time None Recorded Concern Status LastModified by Organization Details LastModified Time None Recorded Advance Directives Directive None Recorded Payers Encounter Date Sequence Insurance Name Policy Number Policy Helton Covered Member ID Helton Member ID Guarantor Name 05/14/2022 1 NAIDA TINSLEY - MEDICARE-[facility] [address] [facility] (MEDICARE) Rod Ortiz [id number] 2 Rod Ortiz 05/14/2022 2 [facility] (MEDICARE SUPPLEMENT) Rod Ortiz [id number] Rod Ortiz 08/20/2022 1 NAIDA TINSLEY - MEDICARE-[facility] [address] [facility] (MEDICARE) Rod Ortiz [id number] 2 Rod Ortiz 08/20/2022 2 [employer] (MEDICARE SUPPLEMENT) Rod Jenkinsdragan [id number] Rod Ortiz 10/29/2022 1 [place] [employer] - MEDICARE-[facility] [facility] (MEDICARE) Rod Ayersleonarda [id number] 2 Rod Ortiz 10/29/2022 2 [employer] (MEDICARE SUPPLEMENT) Rod Francisco Angel [id number] Rod Ortiz 04/30/2023 1 [place] [employer] - MEDICARE-[facility] [address] [facility] (MEDICARE) Rod Francisco Angel [id number] 2 Rod Francisco Angel 04/30/2023 2 [employer] (MEDICARE SUPPLEMENT) Rod Francisco Angel [id number] Rod Jenkinsdragan 05/11/2024 1 [place] [employer] - MEDICARE-[address] [facility] (MEDICARE) Rod Ayersleonarda [id number] 2 Rod Ortiz 05/11/2024 2 [employer] (MEDICARE SUPPLEMENT) Rod Francisco Angel [id number] Rod Ortiz Notes Date Note Type Note Provider Name and Address Organization Details Recorded Time 3 text/html Mr Ortiz presents today to establish care for further evaluation of COPD, dyspnea on exertion, cough, nicotine and marijuana dependenceHe has been on Trelegy Ellipta 100 for about 3 years but does not remember ever having formal pulmonary testing completed.Rescue use is intermittent with good clinical benefitHe worked at [employer] for years and tells me they did do breathing tests there yearly. 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 Quit until the age of 61, then started again.Currently an occasional smoker , also smokes cigarsMarijuana use at about 1-2x weeklyReports rare cough, but does say that this is present mostly only when he has been smoking.Scant production of clear mucous.Never any hemoptysis.Denies chest pain and wheezing.Does not wake at night R/T respiratory symptoms.Can walk flat surfaces without dyspnea, recently walked trails while in [place] without issue.Difficulty with hills and stairs.Can dress and bathe without shortness of breath.One respiratory infection in the last 15 months requiring steroids and antibiotics.Brother with asthma.He admits to seasonal triggers - spring and fallDenies GERD and sinus congestion.Reviewed medical and surgical historyReviewed social and family historyReviewed [facility] notesReviewed medications and allergies Nieves Douglas, [facility] [address], [place] [address], [place], [address], [place] [facility] [employer] 05/14/2022 12:03:30 3 text/html Mr Ortiz presents today to follow up on COPD, dyspnea on exertion, cough, nicotine and marijuana dependenceContinues Trelegy Ellipta 100 daily with good benefitRescue use is intermittentNicotine at 1 PPD from age [age]. Quit until the age of 61, then started again.Currently an occasional smoker , also smokes cigarsMarijuana use at about 1-2x weeklyCough remains rare with production of clear mucous.Never any hemoptysis, chest pain or wheezing.Does not wake at night R/T respiratory symptoms.Can walk flat surfaces without dyspnea, recently walked trails while in [place] without issue.Difficulty with hills and stairs.Can dress and bathe without shortness of breath.One respiratory infection in the last 15 months requiring steroids and antibiotics.Went golfing yesterday and did not have difficulty with dyspnea Nieves Douglas, [facility] [address], [place] [address], [place], [address], [place] 08/20/2022 17:00:55 3 text/html Mr Ortiz presents today to follow up on COPD, dyspnea on exertion, cough, nicotine and marijuana dependence, testing.Continues Trelegy Ellipta 100 daily with good benefitTells me he has had improvement in activity tolerance and decrease in dyspneaRescue use is intermittent - rareNicotine at 1 PPD from age [age]. Quit until the age of 61, then started again.Currently an occasional smoker , also smokes cigarsHe did smoke a cigar on the boys golf trip and tells me he noticed a full chest the next morningMarijuana use at about 1-2x weekly, he is smoking, not ediblesCough remains rare with production of clear mucous.Never any hemoptysis, chest pain or wheezing.Does not wake at night R/T respiratory symptoms.Can walk flat surfaces without dyspneaCan dress and bathe without shortness of breath.One respiratory infection in the last 1 1/2 years months requiring steroids and antibiotics.Continues to notice a thick white coating to tongue Nieves Douglas, ESTEFANI- [address], [place], [address], [place] 10/29/2022 14:45:00 4 text/html Pt is here for medicare wellness YUE BuckC [address], [facility] [address], [place], [address], [place] 04/30/2023 11:24:48 5 text/html Patient is a 68 year old male that presents to the office for annual wellness. Patient reports he is doing well overall and has no concerns at this time. Patient continues to see psychiatrist twice a year. Is doing well at this time and has no concerns. Denies SI/HI. labs- orderedPSA- orderedColonoscopy- orderedLDCT- not neededFlu- declinesCovid- declinesTdap- awareShingles- declinesPneumonia- UTD YUE ArriagaC [address], [place], [address], [place] 05/24/2024 21:37:20
[2024-07-19 08:51] LABS: Basophils Absolute Auto 0.1 K/mm3 (0.0-0.1); Basophils Percent Auto 1.2 % (0.2-1.2); Eosinophils Absolute Auto 0.5 K/mm3 (0-0.3); Eosinophils Percent Auto 6.2 % (0-4.4); Hematocrit 44.6 % (42.0-52.0); Hemoglobin 15.4 g/dL (14.0-18.0); Immature Granulocyte Absolute 0.03 K/mm3 (0.00-0.031); Immature Granulocyte Percent A 0.4 % (0-0.5); Lymphocytes Absolute Auto 1.32 K/mm3 (0.9-3.2); Lymphocytes Percent Auto 16.5 % (18.3-44.2); Mean Corpuscular HGB Conc 34.5 g/dl (32-36); Mean Corpuscular Hemoglobin 32.6 pg (26-34); Mean Corpuscular Volume 94.3 fl (80-100); Mean Platelet Volume 9.3 fl (7.4-10.4); Monocytes Absolute Auto 0.9 K/mm3 (0.1-0.6); Monocytes Percent Auto 11.7 % (2.6-8.5); Neutrophils Absolute Auto 5.1 K/mm3 (1.3-6.7); Platelet Count Result 324 k/mm3 (150-375); Red Blood Count 4.73 M/mm3 (4.6-6.20); Red Cell Distribution Width 12.2 % (11.5-14.5)
[2024-07-19 09:51] LABS: Alanine Aminotransferase 35 U/L (6-50); Albumin Level 4.6 g/dL (3.5-5.1); Alkaline Phosphatase 57 U/L (38-126); Anion Gap 6 mmol/L (4-12); Aspartate Amino Transferase 43 U/L (17-59); Bilirubin,Total 0.8 mg/dL (0.2-1.3); Blood Urea Nitrogen 16 mg/dL (9-20); Calcium 9.3 mg/dL (8.4-10.2); Carbon Dioxide 27 mmol/L (22-30); Chloride 97 mmol/L (98-107); Cholesterol 199 mg/dL (0-200); Estimated Glomerular Filt Rate > 60; Glucose 103 mg/dL (65-110); HDL Direct 81 mg/dL; Potassium 4.2 mmol/L (3.4-5.0); Sodium 130 mmol/L (137-145); Triglycerides 64 mg/dL (<150)
[2024-07-19 10:02] LABS: LDL Cholesterol Direct 85 mg/dL
[2024-07-19 10:22] LABS: Prostate Specific Antigen 0.8 ng/mL (< OR = 4.0)
== END 2024-07-19 08:18 | disposition home or self-care (01) ==
PROVIDERS: Visit Provider Nurse Practitioner Family
DX: E78.5 Hyperlipidemia, unspecified (principal); I10 Essential (primary) hypertension; R73.9 Hyperglycemia, unspecified; Z12.5 Encounter for screening for malignant neoplasm of prostate
CPT/HCPCS: 36415; 80053; 80061; 83036; 84153; 85025; G0103